=== PATIENT | female | born 1955 | race Native Hawaiian/Other Pacific Islander ===

== ENCOUNTER 2018-07-24 14:07 | Outpatient (CLI) | payer OTHER ==
[~2018-07-24 14:07] MED LIST: ADIPEX-P37.5 M1 OR; ASA LO-DOSE81 MG PO; CELEBREX200 MG PO; CELEXA40 MG OR; CRESTOR20 MG PO; LEVOCETIRIZI PO; LEVOXYL88 MCG PO; LISI20TA24 PO; LISINOP/HCTZ1 TA2 PO; LYRICA25 MG PO; MECL25TA84 PO; OXYBUTYNIN10 MG PO; PANT40TA PO; ROPINIROLE3 MG OR; SPIR25TA66 PO; VICTOZA18 MG/3 ML SC; ZOLP10TA2 PO
== END 2018-07-24 20:46 | disposition home or self-care (01) ==
LOC: MAMMO 14:07
DX: Z12.31 Encounter for screening mammogram for malignant neoplasm of breast (principal)

== ENCOUNTER 2018-08-23 10:17 | Outpatient (CLI) | payer OTHER ==
[2018-08-23 10:45] LABS: PLATELET COUNT 291 K/uL (152-353)
== END 2018-08-23 21:50 | disposition home or self-care (01) ==
LOC: LAB 10:17
PROVIDERS: Nurse Practitioner Family
DX: D06.0 Carcinoma in situ of endocervix (principal)
CPT/HCPCS: 36415; 80048; 85027

== ENCOUNTER → 2018-10-08 | Outpatient (CLI) | payer OTHER ==
[2018-10-08 09:30] LABS: PLATELET COUNT 326 K/uL (152-353)
[2018-10-08 09:33] LABS: POTASSIUM 3.9 mmol/L (3.6-5.2)
== END ==
LOC: LABW 09:10
PROVIDERS: Obstetrics & Gynecology Gynecologic Oncology
DX: D06.0 Carcinoma in situ of endocervix (principal); Z01.818 Encounter for other preprocedural examination
CPT/HCPCS: 36415; 80048; 85027

== ENCOUNTER 2019-08-14 08:40 | Outpatient (CLI) | payer OTHER | END 2019-08-14 20:53 | disposition home or self-care (01) | LOC: MAMMO 08:40 | DX: Z12.31 Encounter for screening mammogram for malignant neoplasm of breast (principal) ==